=== PATIENT | female | born 1985 | race Asian ===

== ENCOUNTER 2022-04-27 02:41 | Emergency (ER) | payer BC ==
[~2022-04-27] VITALS: Ht 162.6 cm; Wt 47.2 kg
[2022-04-27 02:53] VITALS: BP_SYST 150
--- NOTE | 2022-04-27 03:12 | NUR ---
Pt placed in Bed 2. Report given to MICHEL Amaya.
[2022-04-27 03:40] LABS: BASOPHILS % (AUTO) 0.8 % (0.0-2.0); EOSINOPHILS % (AUTO) 0.9 % (0.0-4.0); HEMATOCRIT 38.9 % (36-48); HEMOGLOBIN 13.2 g/dL (12.0-16.0); LYMPHOCYTES # (AUTO) 1.6 K/uL (1.0-5.5); MEAN CORPUSCULAR HEMOGLOBIN 34 pg (27-31); MEAN CORPUSCULAR HGB CONC 34 % (32-36); MEAN CORPUSCULAR VOLUME 99 fL (79.0-98.0); MONOCYTES # (AUTO) 0.7 K/uL (0.0-1.0); MONOCYTES % (AUTO) 12.5 % (1.7-9.3); NEUTROPHILS # (AUTO) 3.3 K/uL (1.8-7.7); NEUTROPHILS % (AUTO) 57.8 % (40.0-70.0); PLATELET COUNT (AUTO) 197 K/uL (130-430); RED BLOOD CELL COUNT(AUTO) 3.93 MIL/uL (4.2-6.2); RED CELL DISTRIBUTION WIDTH 12.4 % (9.0-15.0); WHITE BLOOD COUNT (AUTO) 5.8 K/uL (4.8-10.8)
[2022-04-27 03:55] LABS: ANION GAP 12 (5-15); CHLORIDE 102 mmol/L (98-107); UREA NITROGEN, BLOOD 12 mg/dL (8-21)
[2022-04-27 04:03] LABS: ALANINE AMINOTRANSFERASE 24 U/L (12-78); ASPARTATE AMINOTRANSFERASE 22 U/L (10-37); TOTAL BILIRUBIN 0.7 mg/dL (0.0-1.0)
--- NOTE | 2022-04-27 04:10 | NUR ---
COVID SWAB COLLECTED AND SENT TO LAB.
[2022-04-27 04:27] LABS: CALCIUM 8.9 mg/dL (8.4-11.0); CREATININE 0.69 mg/dL (0.55-1.30); GLUCOSE 97 mg/dL (70-99)
[2022-04-27 04:31] LABS: ALBUMIN 4.7 g/dL (3.4-4.8); GFR AFRICAN AMERICAN 124 mL/min (>90)
[2022-04-27] MEDS ORDERED: KETOROLAC TROMETHAMINE 60 MG/2 ML VIAL IM ONE (05:00)
[2022-04-27] MEDS ORDERED: IBUP-1969 PO (05:29)
--- NOTE | 2022-04-27 05:56 | NUR ---
Pt C/O SOB No apparent sign of respiratory distress DC per MD's order DC instructionstions given to pt Pt verbalized understanding AOX4 VSS Able to make needs known NAD at this time Pt exited ED in stable gait
[2022-04-27 05:57] VITALS: BP_SYST 126
== END 2022-04-27 05:56 | disposition home or self-care (01) ==
LOC: SED 02:41
DX: R07.9 Chest pain, unspecified (principal); R06.00 Dyspnea, unspecified; R06.02 Shortness of breath; Z79.899 Other long term (current) drug therapy; Z20.822 Contact with and (suspected) exposure to COVID-19
CPT/HCPCS: 99285; 71045; 87426; 80053; 85025; 85379; 84484; 36415; 93005; 81025; 96372; J1885